=== PATIENT | male | born 1985 | race Caucasian/White ===

== ENCOUNTER → 2017-03-03 | Outpatient (CLI) | payer OTHER ==
--- NOTE | 2017-03-03 18:31 | DIAGNOSTIC IMAGING REPORT ---
LEFT UPPER EXTREMITY ARTERIAL DOPPLER ULTRASOUND CLINICAL HISTORY: Left hand pain. Evaluate for ulnar artery aneurysm. COMPARISON STUDY: No previous studies for comparison. TECHNIQUE: Grayscale and color and duplex Doppler sonography of the arterial system of the left upper extremity was performed. In addition, pressures were measured at the level the brachial, radial and ulnar arteries. FINDINGS: The ratio between the left radial to brachial pressures was 0.96. The ratio between the left ulnar to brachial pressures was 1.04. Normal velocities and triphasic waveforms were identified within the left common carotid, subclavian, axillary, brachial and radial arteries. No aneurysm is identified within the left ulnar artery although sensitivity is diminished given sonographic technique. Flow was identified within the left ulnar artery which was predominantly triphasic. However, the waveform within this vessel was slightly blunted when compared to the radial artery waveform and the velocity was diminished. No elevated velocities were identified. IMPRESSION: Patent major vessels of the left upper extremity. No ulnar artery aneurysm identified although the distal ulnar artery was suboptimally assessed on this exam. Ulnar artery patent however waveform slightly blunted and velocities diminished when compared to the radial artery. However, pressure within the left ulnar artery similar to the radial artery, as described above. The sonographic findings with the ulnar artery are nonspecific although hypothenar hammer syndrome is within the differential. Electronically signed by: Renny Mares M.D. 03/03/2017 6:30 PM Dictated Date/Time: 03/03/2017 4:21 PM
== END | disposition home or self-care (01) ==
LOC: C.ULTR 14:59
PROVIDERS: ATTEND Orthopaedic Surgery
DX: M79.642 Pain in left hand (principal)